=== PATIENT | male | born 1985 | race Two or more races ===

== ENCOUNTER 2019-05-18 16:25 | Emergency (ER) | payer SELFPAY ==
[~2019-05-18] VITALS: Ht 172.7 cm; Wt 77.5 kg
[2019-05-18] MEDS ORDERED: IBUPROFEN 600MG TABLET PO ONE (18:00)
[2019-05-18] MEDS ORDERED: LIDOCAINE HCL/PF 1% 10 MG/ML 5ML VIAL IJ ONE (18:00)
[2019-05-18] MEDS ORDERED: BACITRACIN ZINC OINT UDPKT TOP ONE (18:00)
[2019-05-18] MEDS ORDERED: TETANUS, DIPHTHERIA, PERTUSSIS VAC/PF 0.5ML (>7YR OLD) IM ONE (18:15)
[2019-05-18] MEDS ORDERED: ACETAMINOPHEN WITH CODEINE 300/30MG TABLET PO ONE (19:15)
[2019-05-18 19:39] VITALS: BP 148/94
== END 2019-05-18 19:42 | disposition home or self-care (01) ==
LOC: ER 16:25
DX: S61.412A Laceration without foreign body of left hand, initial encounter (principal); W25.XXXA Contact with sharp glass, initial encounter; Y93.89 Activity, other specified; Y92.017 Garden or yard in single-family (private) house as the place of occurrence of the external cause; Z23 Encounter for immunization
CPT/HCPCS: 12002; 73130; 90471; 90715; 99284; J3490